=== PATIENT | female | born 1990 | race Caucasian/White ===

== ENCOUNTER 2019-01-08 11:15 | Inpatient (IN) | payer OTHER ==
[2019-01-08] MEDS ORDERED: PITOCin/NS 20 UNIT/1000ML DRIP 20,000 MILLIUNITS/1,000 ML BAG IV ONE (12:37)
[2019-01-08] MEDS ORDERED: LACTATED RINGERS 1,000 ML ONE (12:41)
--- NOTE | 2019-01-08 13:43 | History and Physical Report ---
History of Present Illness Date of examination: 01/08/19 Date of admission: 01/08/19 12:32 Chief complaint: Intense labor pains History of present illness: 28 yo Fe , VERNELL 01/10/19 (LMP) 39w5d, presents in active labor. Pt initiated late care with [facility] at 22w3d. records available and reviewed. course has been uneventful since initiating care. 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 labs: A positive, Rubella immune, VDRL Negative, HIV Negative, HBsAg Negative, GC/CL Negative, 1 hr GTT 113, GBS negative. 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 denies: abnormal PAP smear, chlamydia, gonorrhea, hepatitis B, hepatitis C, HIV, syphilis, trichomonas Family/Genetic History: cancer Social history: no significant social history, single, lives with family, full code. denies: smoking, alcohol abuse, prescription drug abuse, IV drug use - Obstetrical History Expected Date of Delivery: 01/10/19 Actual Gestation: 39 Week(s) 5 Day(s) : 2 Para: 1 Hx # Term Pregnancies: 0 Number of Pregnancies: 0 Spontaneous Abortions: 0 Induced : 0 Number of Living Children: 1 #1 Infant Gender: Male year: 2,[birth year] Birthweight: 3.629 kg Method of Delivery: Vaginal Gestational age at delivery: 40 Complications: other (PPH) Medications and Allergies Allergies Allergy/AdvReac Type Severity Reaction Status Date / Time No Known Allergies Allergy Verified 01/08/19 13:31 Review of Systems Eyes: normal appearance Cardiovascular: no chest pain, no shortness of breath Respiratory: no shortness of breath Breasts: normal Gastrointestinal: no nausea, no vomiting, no diarrhea, no constipation Genitourinary: normal appearance, contractions, no vaginal bleeding, no vaginal discharge, no leakage of fluid, no pelvic pain, no genital sores Integumentary: no rash, no sores, no lesions Neurological: other (Denies) Psychiatric: other (Denies) Endocrine: other (Denies) - Vital Signs Vital signs: Vital Signs Pulse BP 82 98/63 01/08/19 11:46 01/08/19 11:46 Temp Pulse Resp BP Pulse Ox 98.0 F 71 18 109/67 01/08/19 11:49 01/08/19 13:15 01/08/19 11:49 01/08/19 13:15 - Physical Exam Breasts: Positive: normal Cardiovascular: Regular rate, Normal S1, Normal S2, No murmurs Lungs: Positive: Clear to auscultation, Normal air movement Abdomen: Positive: normal appearance, soft, other (gravid) Genitourinary (Female): Positive: normal external genitalia, normal perenium Vulva: both: normal Vagina: Positive: normal moisture Uterus: Positive: enlarged (Gravid) Anus/Rectum: Positive: normal perianal skin Extremities: Positive: normal Deep Tendon Reflex Grade: Normal +2 - Obstetrical FHR: auscultation normal FHR comments: Fht 150, Moderate variablility, no accels or decels. Uterine Contraction Monitor Mode: External Cervical Dilatation: 8 (AROM, large amt clear fluid ) Cervical Effacement Percentage: 90 station: 0 Uterine Contraction Frequency (min): 2-3 Uterine Contraction Pattern: Irregular Uterine Tone Measurement Phase: Resting Uterine Contraction Intensity: Strong/Firm Results All other labs normal. Assessment and Plan A: Term IUP at 39w5d Active labor GBS Negtive HSV2 history(on Prophylaxis) Category 1 tracing P: Admit to L&D; Routine labor orders Expectant Management Anticiapte
[2019-01-08] MEDS ORDERED: PITOCin/NS 20 UNIT/1000ML DRIP 20 UNITS/1,000 ML BAG IV SCH (14:00)
[2019-01-08] MEDS ORDERED: NARCAN 0.4 MG/1 ML IV PRN (14:00)
[2019-01-08] MEDS ORDERED: PITOCin/NS 30 UNIT/500ML 30 UNITS/500 ML BAG IV SCH (14:00)
[2019-01-08] MEDS ORDERED: XYLOCAINE 2% INFILTRATI NR (14:00)
[2019-01-08] MEDS ORDERED: BRETHINE SUB-Q PRN (14:00)
[2019-01-08] MEDS ORDERED: ZOFRAN IV PRN (14:00)
[2019-01-08] MEDS ORDERED: BRETHINE IVP PRN (14:00)
[2019-01-08] MEDS ORDERED: MINERAL OIL PO PRN (14:00)
[2019-01-08] MEDS ORDERED: LACTATED RINGERS 1,000 ML IV SCH (14:00)
--- NOTE | 2019-01-08 14:11 | Procedure Note ---
OB Delivery Note - Delivery Date of Delivery: 01/08/19 (13:54) Surgeon: JESUS LANGE (ELVIN) Estimated blood loss: 100cc - Vaginal Delivery presentation: vertex, compound (Hand) Delivery position: OA Intrapartum events: none Delivery induction: none Delivery augmentation: rupture of membranes Delivery monitor: external FHT, external uterine Route of delivery: (13:54) Delivery placenta: spontaneous (13:59) Delivery cord: 3 umbilical vessels Episiotomy: none Delivery laceration: 1st degree (Small, no repair) Anesthesia: none Delivery comments: viable female infant, JOHN, compound hand presentation at 13:54. Vigorous placed on mothers abdomen. Delayed cord clamping. Then cut by family member with my guidance. Spontaneous price delivery of intact placenta at 13:59. FF@U-2. Small first degree perineal laceration, approximates well with good homeostasis. Left unrepaired. EBL 100CC. and mother left in stable condition in L&D. - A at 1 minute: 8 at 5 minutes: 9 (3762 grams, 8lbs 4.7 oz, 19") Gender: Female
[2019-01-08] MEDS ORDERED: PHENERGAN PO PRN (14:18)
[2019-01-08] MEDS ORDERED: DULCOLAX PR PRN (14:18)
[2019-01-08] MEDS ORDERED: TYLENOL PO PRN (14:18)
[2019-01-08] MEDS ORDERED: LANSINOH TP PRN (14:18)
[2019-01-08] MEDS ORDERED: TUCKS PAD TP PRN (14:18)
[2019-01-08] MEDS ORDERED: MILK OF MAGNESIA PO PRN (14:18)
[2019-01-08] MEDS ORDERED: BENADRYL PO PRN (14:18)
[2019-01-08 14:20] LABS: Hemoglobin 11.2 gm/dl (10.1-14.3); Mean Corpuscular HGB Conc 34 % (30-34); Mean Corpuscular Volume 103 fl (79-97); Platelet Count 186 K/mm3 (140-440); Red Cell Distribution Width 13.4 % (13.2-15.2)
[2019-01-08] MEDS: IBUPROFEN PO SCH ×2 (14:49→21:22)
[2019-01-08] MEDS ORDERED: SODIUM CHLORIDE FLUSH SYRINGE 10 ML IV NR (15:00)
[2019-01-08] MEDS: NORCO 5/325 PO PRN (17:42)
[2019-01-09] MEDS: NORCO 5/325 PO PRN ×2 (00:07→06:30)
[2019-01-09 02:35] LABS: Hematocrit 33.8 % (30.3-42.9); Hemoglobin 11.8 gm/dl (10.1-14.3)
[2019-01-09] MEDS: IBUPROFEN PO SCH ×2 (03:45→09:03)
--- NOTE | 2019-01-09 11:32 | Progress Note ---
Assessment and Plan A: PPD#1 s/p Stable P: Routine PP orders Discharge home today Subjective - Subjective Date of service: 01/09/19 Principal diagnosis: PPD#1 s/p Interval history: 28 yo Fe , VERNELL 01/10/19 (LMP) 39w5d, presents in active labor. Pt initiated late care with [facility] at 22w3d. records available and reviewed. course has been uneventful since initiating care. 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 labs: A positive, Rubella immune, VDRL Negative, HIV Negative, HBsAg Negative, GC/CL Negative, 1 hr GTT 113, GBS negative. Patient reports: appetite normal, voiding normally, pain well controlled, flatus, ambulating normally : doing well, nursing well Objective - Vital Signs Latest vital signs: Vital Signs Temp Pulse Resp BP BP Pulse Ox 01/09/19 07:47 98.1 F 71 18 98/65 98 01/09/19 04:00 98.6 F 77 16 108/75 01/08/19 20:37 98.0 F 18 100/60 01/08/19 16:06 98.4 F 68 18 97/53 97 01/08/19 14:22 83 114/64 01/08/19 13:15 71 109/67 01/08/19 11:49 98.0 F 18 01/08/19 11:46 82 98/63 Intake and Output 01/08/19 01/09/19 01/09/19 23:59 07:59 15:59 Intake Total 720 240 Output Total 500 Balance 720 -260 Intake: Oral 120 Intake, Free Water 600 240 Output: Urine 500 Void 500 Other: Total, Intake Amount 120 Total, Output Amount 500 # Voids Void 1 - Exam Breasts: Present: normal, Cardiovascular: Present: Regular rate, Normal S1, Normal S2, No murmurs Lungs: Present: Clear to auscultation, Normal air movement Abdomen: Present: normal appearance, soft, normal bowel sounds. Absent: distention Vulva: both: normal Uterus: Present: firm, fundal height at umbilicus Extremities: Present: normal Deep Tendon Reflex Grade: Normal +2 - Labs Labs: Abnormal lab results 01/08/19 Range/Units 12:50 WBC 12.1 H (4.5-11.0) K/mm3 RBC 3.20 L (3.65-5.03) M/mm3 MCV 103 H (79-97) fl MCH 35 H (28-32) pg
--- NOTE | 2019-01-09 11:34 | Discharge Summary ---
< - Last Filed: 01/09/19 11:33> Providers - Providers Date of Admission: 01/08/19 12:32 Date of discharge: 01/09/19 Attending physician: LAUREN FLANNERY MD Primary care physician: LAUREN FLANNERY MD Hospitalization Reason for admission: active labor, IUP at term Delivery: Procedure details: See delivery note Episiotomy: none Laceration: 1st degree (small, no repair) Other procedures: none complications: none Discharge diagnosis: IUP at term delivered [place] baby: female Condition at discharge: Good Disposition: DC-01 TO HOME OR SELFCARE Plan - Provider Discharge Summary Activity: routine, no sex for 6 weeks, no heavy lifting 4 weeks, no strenuous exercise Diet: routine Instructions: routine Additional instructions: [] Smoking cessation referral if applicable(refer to patient education folder for contact #) [] Refer to [facility] Booklet Call your doctor immediately for: * Fever > 100.5 * Heavy vaginal bleeding ( >1 pad per hour) * Severe persistent headache * Shortness of breath * Reddened, hot, painful area to leg or breast * Drainage or odor from incision. * Keep incision clean and dry at all times and follow doctor's instructions regarding bathing/showering - Follow up plan Follow up: LAUREN FLANNERY MD [Primary Care Provider] - 6 Weeks Forms: Discharge Signature Page <SVETLANA RAMIREZShasta - Last Filed: 01/09/19 13:32> Providers - Providers Date of Admission: 01/08/19 12:32 Attending physician: LAUREN FLANNERY MD Primary care physician: LAUREN FLANNERY MD Hospitalization Pertinent studies: Laboratory Results - last 72 hr 01/08/19 01/08/19 01/09/19 12:50 12:50 02:14 WBC 12.1 H RBC 3.20 L Hgb 11.2 11.8 Hct 33.0 33.8 MCV 103 H MCH 35 H MCHC 34 RDW 13.4 Plt Count 186 RPR Nonreactive Plan - Provider Discharge Summary Additional instructions: [] Smoking cessation referral if applicable(refer to patient education folder for contact #) [] Refer to [facility] Booklet Call your doctor immediately for: * Fever > 100.5 * Heavy vaginal bleeding ( >1 pad per hour) * Severe persistent headache * Shortness of breath * Reddened, hot, painful area to leg or breast * Drainage or odor from incision. * Keep incision clean and dry at all times and follow doctor's instructions regarding bathing/showering
[2019-01-09 17:30] VITALS: BP 113/71
== END 2019-01-09 17:20 | disposition home or self-care (01) | DRG 807 ==
LOC: TRG 11:15 → LD 12:32 → OB 16:02
PROVIDERS: ADMIT Obstetrics & Gynecology; ATTEND Obstetrics & Gynecology
PROC: 10E0XZZ Delivery of Products of Conception, External Approach (ICD-10-PCS; principal; 2019-01-08)
DX: O70.0 First degree perineal laceration during delivery (principal); Z37.0 Single live birth; Z3A.39 39 weeks gestation of pregnancy
CPT/HCPCS: 36415; 59025; 85014; 85018; 85027; 86592; G0378; J2590; J7120